=== PATIENT | male | born 1985 | race Caucasian/White ===

== ENCOUNTER 2016-10-31 20:12 | Emergency (ER) | payer BC ==
[2016-10-31 20:29] VITALS: BP 133/77
[2016-10-31] MEDS ORDERED: predniSONE TAB* 20 MG PO ONE ×3 (21:03→21:04)
--- NOTE | 2016-10-31 21:05 | UC ---
Skin Complaint HPI - HPI Summary HPI Summary: exposed to possible poison olive while weed eating several days ago---erythema with clear vesicular rash that patient reports to be intensely itchy---has tried Zanfil - History of Current Complaint Chief Complaint: UCRash Time Seen by Provider: 10/31/16 20:46 Stated Complaint: SKIN COMPLAINT Hx Obtained From: Patient Onset/Duration: Sudden Onset, Lasting Days, Still Present Skin Exposure Onset/Duration: Days Ago Timing: Constant Onset Severity: Moderate Current Severity: Moderate Location: Diffuse Character: Redness Aggravating: Nothing Alleviating: Nothing Related History: Possible Reaction to: Environmental Exposure - Allergy/Home Medications Allergies/Adverse Reactions: Allergies Allergy/AdvReac Type Severity Reaction Status Date / Time No Known Allergies Allergy Verified 10/31/16 20:17 Home Medications: Home Medications diPHENhydraMINE PO* [Benadryl PO 25 MG TAB*] 25 mg PO TID PRN 10/31/16 [History Confirmed 10/31/16] Review of Systems Constitutional: Negative Skin: Rash Eyes: Negative ENT: Negative Respiratory: Negative Cardiovascular: Negative Gastrointestinal: Negative Genitourinary: Negative Motor: Negative Neurovascular: Negative Musculoskeletal: Negative Neurological: Negative Psychological: Negative All Other Systems Reviewed And Are Negative: Yes PMH/Surg Hx/FS Hx/Imm Hx Previously Healthy: Yes - Surgical History Surgical History: Yes Surgery Procedure, Year, and Place: tonsils; cleft palate repair as , wisdom teeth; ear tubes - Family History Known Family History: Positive: None - Social History Occupation: Employed Full-time Lives: With Family Alcohol Use: Occasionally Substance Use Type: None Smoking Status (MU): Never Smoked Tobacco Have You Smoked in the Last Year: No - Immunization History Most Recent Influenza Vaccination: current Physical Exam Triage Information Reviewed: Yes Appearance: Well-Appearing, No Pain Distress, Well-Nourished Vital Signs: Initial Vital Signs Temp 96.7 F 10/31/16 20:19 Pulse 71 10/31/16 20:19 Resp 16 10/31/16 20:19 BP 133/77 10/31/16 20:19 Pulse Ox 98 10/31/16 20:19 Vital Signs Reviewed: Yes Eye Exam: Normal Eyes: Positive: Conjunctiva Clear ENT Exam: Normal ENT: Positive: Normal ENT inspection, Hearing grossly normal, Pharynx normal, TMs normal. Negative: Nasal congestion, Nasal drainage, Tonsillar swelling, Tonsillar exudate, Trismus, Muffled/hoarse voice Dental Exam: Normal Neck exam: Normal Neck: Positive: Supple, Nontender Respiratory Exam: Normal Respiratory: Positive: Chest non-tender, Lungs clear, Normal breath sounds, No respiratory distress, No accessory muscle use Cardiovascular Exam: Normal Cardiovascular: Positive: RRR, No Murmur, Pulses Normal, Brisk Capillary Refill Musculoskeletal Exam: Normal Musculoskeletal: Positive: Strength Intact, ROM Intact, No Edema Neurological Exam: Normal Neurological: Positive: Alert, Muscle Tone Normal Psychological Exam: Normal Skin Exam: Normal Skin: Positive: rashes - both lower arms Course/Dx - Course Course Of Treatment: predenisone, otc for comfort, benadryl, follow with pcp prn - Differential Diagnoses - Skin Complaint Differential Diagnoses: Cellulitis, Local Allergic Reaction, Poison Olive, Poison Reading - Diagnoses Provider Diagnoses: contact dermatitis Discharge - Discharge Plan Condition: Stable Disposition: HOME Prescriptions: predniSONE TAB* [Deltasone TAB*] 10 mg PO DAILY #45 tab Patient Education Materials: Prednisone (By mouth), Diphenhydramine (On the skin), Poison Oilve (ED) Forms: *Work Release Referrals: Aarti Hayden PA [Primary Care Provider] - If Needed
== END 2016-10-31 21:28 | disposition home or self-care (01) ==
LOC: UCCORT 20:12
DX: R21 Rash and other nonspecific skin eruption (principal)
CPT/HCPCS: 99212; G0463; J7512

== ENCOUNTER 2017-04-15 09:06 | Emergency (ER) | payer SELFPAY ==
[2017-04-15 10:36] VITALS: BP 133/77
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
--- NOTE | 2017-04-15 10:54 | RAD ---
Indication: Left rib pain. 3 views of left ribs demonstrates no fracture. No evidence of dislocation is noted. No pneumothorax is noted. IMPRESSION: No fracture of left ribs is noted.
== END 2017-04-15 11:08 | disposition home or self-care (01) ==
LOC: UCCORT 09:06
DX: S23.41XA Sprain of ribs, initial encounter (principal); W19.XXXA Unspecified fall, initial encounter; Y93.89 Activity, other specified; Y92.9 Unspecified place or not applicable; Y99.0 Civilian activity done for income or pay
CPT/HCPCS: 99211; G0463

== ENCOUNTER 2019-06-12 09:04 | Emergency (ER) | payer BC ==
[2019-06-12 09:59] VITALS: BP 123/80
--- NOTE | 2019-06-12 10:30 | UC ---
Throat Pain/Nasal Clive HPI - HPI Summary HPI Summary: Pt presents with c/o sudden onset of ST that began last night at bedtime. - History of Current Complaint Chief Complaint: UCRespiratory Stated Complaint: ST Time Seen by Provider: 06/12/19 10:04 Hx Obtained From: Patient Onset/Duration: Sudden Onset, Lasting Hours, Still Present Severity: Mild Pain Intensity: 3 Cough: None Associated Signs & Symptoms: Positive: Negative - Epiglottits Risk Factors Epiglottis Risk Factors: Sudden Onset - Allergies/Home Medications Allergies/Adverse Reactions: Allergies Allergy/AdvReac Type Severity Reaction Status Date / Time seasonal Allergy Eyes Uncoded 06/12/19 09:59 Itchy/Swollen/Red/Watery Home Medications: Home Medications NK [No Home Medications Reported] 06/12/19 [History Confirmed 06/12/19] PMH/Surg Hx/FS Hx/Imm Hx Previously Healthy: Yes - Surgical History Surgical History: Yes Surgery Procedure, Year, and Place: tonsils as child, cleft palatte repair as infant - Family History Known Family History: Positive: None Negative: Diabetes - Social History Occupation: Employed Full-time Lives: With Family Alcohol Use: Occasionally Substance Use Type: Excessive Caffeine Smoking Status (MU): Never Smoked Tobacco Have You Smoked in the Last Year: No - Immunization History Most Recent Influenza Vaccination: current Review of Systems All Other Systems Reviewed And Are Negative: Yes Constitutional: Positive: Negative Skin: Positive: Negative Eyes: Positive: Negative ENT: Positive: Sore Throat Respiratory: Positive: Negative Cardiovascular: Positive: Negative Gastrointestinal: Positive: Negative Genitourinary: Positive: Negative Motor: Positive: Negative Neurovascular: Positive: Negative Musculoskeletal: Positive: Negative Neurological: Positive: Negative Psychological: Positive: Negative Is Patient Immunocompromised?: No Physical Exam Triage Information Reviewed: Yes Appearance: Well-Appearing Vital Signs: Initial Vital Signs Temp 97.7 F 06/12/19 09:52 Pulse 80 06/12/19 09:52 Resp 16 06/12/19 09:52 BP 123/80 06/12/19 09:52 Pulse Ox 98 06/12/19 09:52 Vital Signs Reviewed: Yes Eye Exam: Normal ENT: Positive: Other - biforcated uvula Dental Exam: Normal Neck exam: Normal Respiratory Exam: Normal Cardiovascular Exam: Normal Musculoskeletal Exam: Normal Neurological Exam: Normal Psychological Exam: Normal Skin Exam: Normal Throat Pain/Nasal Course/Dx - Differential Dx/Diagnosis Differential Diagnosis/HQI/PQRI: Influenza, Otitis Media, Pharyngitis, Tonsillitis Provider Diagnosis: Sore throat (viral) Discharge ED - Sign-Out/Discharge Documenting (check all that apply): Patient Departure All imaging exams completed and their final reports reviewed: No Studies - Discharge Plan Condition: Stable Disposition: HOME Patient Education Materials: Pharyngitis (ED), Safe Use of NSAIDs (ED) Referrals: Aarti Hayden PA [Primary Care Provider] - If Needed - Billing Disposition and Condition Condition: STABLE Disposition: Home
== END 2019-06-12 10:42 | disposition home or self-care (01) ==
LOC: UCCORT 09:04
DX: J02.8 Acute pharyngitis due to other specified organisms (principal); Z91.09 Other allergy status, other than to drugs and biological substances
CPT/HCPCS: 87651; 99211; G0463

== ENCOUNTER 2019-07-12 07:28 | Emergency (ER) | payer BC ==
[2019-07-12 07:44] VITALS: BP 134/79
[2019-07-12 08:07] LABS: Influenza A Molecular POSITIVE (Negative)
--- NOTE | 2019-07-12 08:10 | UC ---
FLU HPI - HPI Summary HPI Summary: 34-year-old male who started experiencing flulike illness yesterday with fever, chills, body aches. His tested positive for influenza a last week. - History of Current Complaint Chief Complaint: UCGeneralIllness Stated Complaint: SHAKES FEVER COUGH ACHY Time Seen by Provider: 07/12/19 07:56 Hx Obtained From: Patient Onset/Duration: Sudden Onset Severity Currently: Moderate Severity Initially: Moderate Pain Intensity: 3 Associated Signs & Symptoms: Positive: Fever, Myalgia, Cough, Sore Throat, Nasal Congestion, Headache Related Hx: Possible Flu/Infectious Exposure - Allergy/Home Medications Allergies/Adverse Reactions: Allergies Allergy/AdvReac Type Severity Reaction Status Date / Time seasonal Allergy Eyes Uncoded 07/12/19 07:42 Itchy/Swollen/Red/Watery Home Medications: Home Medications Dm/Acetaminophen/Doxylamine [Nighttime Cold-Flu Rlf Sftgl] 1 each PO ONCE [History Confirmed 07/12/19] Oseltamivir CAP* [Tamiflu CAP*] 75 mg PO BID 5 Days #10 cap 07/12/19 [Rx] PMH/Surg Hx/FS Hx/Imm Hx Previously Healthy: Yes - Surgical History Surgical History: Yes Surgery Procedure, Year, and Place: tonsils as child, cleft palatte repair as - Family History Known Family History: Positive: None Negative: Diabetes - Social History Occupation: Employed Full-time Lives: With Family Alcohol Use: Occasionally Substance Use Type: None Smoking Status (MU): Current Some Day Smoker Type: Cigars Amount Used/How Often: occasionally Have You Smoked in the Last Year: No - Immunization History Most Recent Influenza Vaccination: current Review of Systems All Other Systems Reviewed And Are Negative: Yes Constitutional: Positive: Fever, Chills ENT: Positive: Sore Throat, Nasal Discharge Respiratory: Positive: Cough Musculoskeletal: Positive: Myalgia Neurological/Mental Status: Positive: Headache Is Patient Immunocompromised?: No Physical Exam Triage Information Reviewed: Yes Appearance: Well-Appearing, No Pain Distress, Well-Nourished Vital Signs: Initial Vital Signs Temp 100.0 F 07/12/19 07:36 Pulse 96 07/12/19 07:36 Resp 16 07/12/19 07:36 BP 134/79 07/12/19 07:36 Pulse Ox 99 07/12/19 07:36 Vital Signs Reviewed: Yes Eyes: Positive: Conjunctiva Clear ENT: Positive: Hearing grossly normal, Pharynx normal, TMs normal, Uvula midline Neck: Positive: Supple, Nontender, No Lymphadenopathy Respiratory: Positive: Lungs clear, Normal breath sounds, No respiratory distress, No accessory muscle use Cardiovascular: Positive: RRR, No Murmur, Pulses Normal, Brisk Capillary Refill Musculoskeletal Exam: Normal Neurological Exam: Normal Psychological Exam: Normal Skin Exam: Normal Flu Course/Dx - Course Course Of Treatment: Rapid flu test: Positive for influenza type A Patient is comfortable here. I'm going to start him on Tamiflu. - Differential Dx/Diagnosis Provider Diagnosis: Influenza A Discharge ED - Sign-Out/Discharge Documenting (check all that apply): Patient Departure All imaging exams completed and their final reports reviewed: No Studies - Discharge Plan Condition: Fair Disposition: HOME Prescriptions: Oseltamivir CAP* [Tamiflu CAP*] 75 mg PO BID 5 Days #10 cap Patient Education Materials: Influenza (DC) Forms: *Work Release Referrals: Aarti Hayden PA [Primary Care Provider] - Additional Instructions: Increase fluids, rest May take Tylenol every 4 hours and alternate with Motrin every 8 hours for fever. Follow up with your primary car provider if no improvement in 3-4 days. - Billing Disposition and Condition Condition: FAIR Disposition: Home
== END 2019-07-12 08:27 | disposition home or self-care (01) ==
LOC: UCCORT 07:28
DX: J10.1 Influenza due to other identified influenza virus with other respiratory manifestations (principal); F17.290 Nicotine dependence, other tobacco product, uncomplicated; Z91.09 Other allergy status, other than to drugs and biological substances
CPT/HCPCS: 99212; G0463